=== PATIENT | female | born 1995 | race African-American/Black ===

== ENCOUNTER 2022-02-24 18:21 | Emergency (ER) | payer OTHER | END 2022-02-24 20:54 | disposition home or self-care (01) | LOC: JERFT 18:21 | DX: S90.852A Superficial foreign body, left foot, initial encounter (principal); S20.312A Abrasion of left front wall of thorax, initial encounter; Y04.0XXA Assault by unarmed brawl or fight, initial encounter | CPT/HCPCS: 99281-25 ==